=== PATIENT | female | born 1990 | race Caucasian/White ===

== ENCOUNTER 2018-01-06 22:08 | Emergency (ER) | payer OTHER, SELFPAY ==
[2018-01-06 22:09] VITALS: BP 125/65; PULSE 95; RESP 14; TEMP 37.6; O2SAT 100; BMI 38.0
--- NOTE | 2018-01-06 23:00 | RAD_ITS ---
STUDY: X-RAY - RIGHT SHOULDER REASON FOR EXAM: Female, 27 years old. Clinical by patient, right shoulder pain. TECHNIQUE: 4 view(s) of the shoulder. COMPARISON: None. FINDINGS: Normal glenohumeral articulation. Normal acromioclavicular joint. Normal acromion. Normal humeral head and visualized proximal humerus. The soft tissue structures are unremarkable. Normal visualized pulmonary apex. RAD/Shoulder min 2 Views IMPRESSION: Normal x-ray examination of the shoulder. No radiographic evidence of acute injury. Electronically Signed: Marlon Calvillo, at 23:17 EDT Tel , Service support ,
[2018-01-06] MEDS: Ibuprofen 600 MG Tablet PO (23:14)
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
--- NOTE | 2018-01-06 23:43 | DCINST.ED_ITS ---
ED Disposition - Plan for ED Patient: Disposition: Home or Assisted Living Chief Complaint: Upper Extremity Injury Instructions: When Your Child Has a Stinger, ED Sprain Shoulder Prescriptions: Cyclobenzaprine [Flexeril] 5 mg PO TID PRN #15 tab PRN Reason: Muscle Spasm Ibuprofen 600 mg PO 4X/DAY #20 tab Referrals: Sunny Antonio MD [Primary Care Provider] - 3-5 Days if not improving [facility] [GROUP OF PHYSICIANS] - As soon as possible Additional Instructions: Please use ibuprofen as needed for pain. If you are not driving or doing any dangerous activities, you may use the muscle relaxant to help with the muscle soreness in your neck and shoulder. If you have any worsening of your condition or any new concerning symptoms, please return immediately to the emergency department for another evaluation.
[2018-01-07] VITALS: BP 121/74; PULSE 80; RESP 17; O2SAT 99
== END 2018-01-07 00:01 | disposition home or self-care (01) ==
PROVIDERS: Emergency Provider Emergency Medicine; Family Provider Family Medicine; PCP Family Medicine
DX: S14.3XXA Injury of brachial plexus, initial encounter (principal); S46.911A Strain of unspecified muscle, fascia and tendon at shoulder and upper arm level, right arm, initial encounter; Y04.2XXA Assault by strike against or bumped into by another person, initial encounter; X58.XXXA Exposure to other specified factors, initial encounter; Y93.89 Activity, other specified; Y92.119 Unspecified place in children's home and orphanage as the place of occurrence of the external cause; Y99.0 Civilian activity done for income or pay; Z79.899 Other long term (current) drug therapy
CPT/HCPCS: 73030; 99283

== ENCOUNTER → 2018-06-13 08:16 | Outpatient (CLI) | payer OTHER, SELFPAY ==
[2018-06-13 10:30] LABS: Anion Gap 10 (5-15); BUN 12 mg/dL (7-18); BUN/Creat Ratio 14.3 RATIO (10-20); Calcium,Total 8.6 mg/dL (8.5-10.1); Chloride 108 mmol/L (98-107); Cholesterol 198 mg/dL (200); Creatinine, Serum 0.84 mg/dL (0.55-1.02); EST Glomerular Filtration Rate 87 mL/min (>60); Est Glom Filt Rate - Afr Amer 105 mL/min (>60); Glucose 83 mg/dL (74-106); High Density Lipoprotein 64 mg/dL; Potassium 4.2 mmol/L (3.5-5.1); Sodium Level 144 mmol/L (136-145); Thyroid Stim Hormone (TSH) 1.03 uIU/mL (0.358-3.74); Triglycerides 100 mg/dL; Very Low Density Lipoprotein 20 mg/dL (5-40)
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
== END ==
PROVIDERS: Family Provider Family Medicine; PCP Family Medicine; Visit Provider Family Medicine
DX: E66.9 Obesity, unspecified (principal)
CPT/HCPCS: 36415; 80048; 80061; 84443

== ENCOUNTER → 2023-06-29 | Outpatient (CLI) | payer BC, SELFPAY ==
[2023-06-29 16:01] LABS: Absolute Lymphocyte Count 2.04 X10^3/uL (0.83-4.51); Absolute Neutrophil Count 5.9 X10^3/uL (2.0-7.7); Basophil# 0.04 X10^3/uL; Basophil% 0.5 % (0-1); Eosinophils% 1.2 % (0-5); Hematocrit 41.4 % (37-47); Hemoglobin 13.7 g/dL (12.0-15.0); Lymphocyte # 2.04 X10^3/ul (0.83-4.51); Lymphocyte % 23.7 % (19-41); Mean Corp Hgb Conc 33.1 g/dL (32-36); Mean Corpuscular Hgb 31.1 pg (27.0-32.0); Mean Corpuscular Volume 93.9 fL (81-99); Mean Platelet Vol. 10.5 fl (6.2-12.0); Monocyte% 5.8 % (0-10); NRBC Flagged by Analyzer 0 % (0-5); Neutrophil # 5.89 X10^3/uL (2.7-7.7); Neutrophil % 68.6 % (47-70); Platelet Count 259 K/mm3 (150-450); RBC Distribution Width CV 12.7 % (11.6-14.6); RBC Distribution Width SD 43.9 fl (35.1-43.9); Red Blood Count 4.41 M/mm3 (4.2-5.4); White Blood Count 8.6 K/mm3 (4.4-11.0)
[2023-06-29 16:18] LABS: Hemoglobin A1c 4.4 % (3.8-5.6)
[2023-06-29 16:52] LABS: NATERA MAILED SPECIMEN
[2023-06-29 16:55] LABS: HIV - WCH Non-Reactive (Nonreactive); Hepatitis B Surface Antigen Non-Reactive (Nonreactive); Hepatitis C Antibody Non-Reactive (Nonreactive); Rubella IgG Reactive (Nonreactive); Syphilis Antibodies Non-reactive
[2023-07-01 22:10] LABS: Chlamydia By Nucleic Acid AMP Negative (Negative); Gonococcus By Nucleic Acid AMP Negative (Negative)
[2023-07-04 12:08] LABS: HPV APTIMA, High Risk Negative (Negative)
== END | disposition home or self-care (01) ==
PROVIDERS: PCP Family Medicine; Referring Provider Registered Nurse; Visit Provider Registered Nurse
DX: Z34.81 Encounter for supervision of other normal pregnancy, first trimester (principal); Z3A.00 Weeks of gestation of pregnancy not specified
CPT/HCPCS: 36415; 83036; 85025; 86703; 86762; 86780; 86803; 86850; 86900; 86901; 87086; 87088; 87340; 87491; 87591; 87624; 88175; G0145

== ENCOUNTER → 2023-10-25 | Outpatient (CLI) | payer BC, SELFPAY ==
[2023-10-25 09:15] LABS: Absolute Lymphocyte Count 1.48 X10^3/uL (0.83-4.51); Absolute Neutrophil Count 3.9 X10^3/uL (2.0-7.7); Basophil# 0.02 X10^3/uL; Basophil% 0.3 % (0-1); Eosinophil# 0.28 X10^3/uL; Eosinophils% 4.6 % (0-5); Hematocrit 38.7 % (37-47); Hemoglobin 12.9 g/dL (12.0-15.0); Lymphocyte # 1.48 X10^3/ul (0.83-4.51); Lymphocyte % 24.5 % (19-41); Mean Corp Hgb Conc 33.3 g/dL (32-36); Mean Platelet Vol. 10.7 fl (6.2-12.0); Monocyte# 0.39 X10^3/uL; Monocyte% 6.4 % (0-10); NRBC Flagged by Analyzer 0 % (0-5); Neutrophil # 3.86 X10^3/uL (2.7-7.7); Neutrophil % 63.9 % (47-70); Platelet Count 166 K/mm3 (150-450); RBC Distribution Width SD 44.4 fl (35.1-43.9); Red Blood Count 4.16 M/mm3 (4.2-5.4); White Blood Count 6.1 K/mm3 (4.4-11.0)
[2023-10-25 09:25] LABS: Glucose Challenge Gest 1H 50g 112 mg/dL (70-140)
[2023-10-25 09:56] LABS: HIV - WCH Non-Reactive (Nonreactive); Syphilis Antibodies Non-reactive
== END | disposition home or self-care (01) ==
LOC: PAVLAB 08:40
PROVIDERS: PCP Family Medicine; Referring Provider Obstetrics & Gynecology; Visit Provider Obstetrics & Gynecology
DX: O09.90 Supervision of high risk pregnancy, unspecified, unspecified trimester (principal); Z13.1 Encounter for screening for diabetes mellitus; Z3A.00 Weeks of gestation of pregnancy not specified
CPT/HCPCS: 36415; 82950; 85025; 86703; 86780

== ENCOUNTER → 2023-12-22 | Outpatient (CLI) | payer BC, SELFPAY | END | disposition home or self-care (01) | LOC: LABSPEC 11:04 | PROVIDERS: PCP Family Medicine; Referring Provider Obstetrics & Gynecology; Visit Provider Obstetrics & Gynecology | DX: O09.93 Supervision of high risk pregnancy, unspecified, third trimester (principal); Z3A.00 Weeks of gestation of pregnancy not specified | CPT/HCPCS: 87081 ==

== ENCOUNTER → 2024-01-06 | Outpatient (CLI) | payer BC, SELFPAY ==
--- NOTE | 2024-01-06 09:07 | US_ITS ---
STUDY: SECOND AND THIRD TRIMESTER OBSTETRICAL ULTRASOUND - LIMITED REASON FOR EXAM: Female, 33 years old Obesity -- growth LMP: 04/15/2023 PRIOR ULTRASOUND: 06/29/2023 TECHNIQUE: Transabdominal TECHNICAL QUALITY: Adequate. FINDINGS: There is a single intrauterine fetus. The fetus is in a cephalic presentation. There is demonstrated cardiac activity with a heart rate of 143 bpm. There is a normal amniotic fluid volume. The largest amniotic fluid pocket measures 4.7 cm. The amniotic fluid index (RAKESH) is 15.7 cm. The placenta is anterior in location and is not low lying. There are Grade 2 placental changes. The cervix measures 4.7 cm cm in length. BIOMETRY: BPD: 9.0 cm: 3 6 weeks, 3 days HC: 33.5 cm: 38 weeks, 2 days AC: 31.2 cm: 35 weeks, 1 days FL: 7.2 cm: 37 weeks, 0 days Age by LMP: 38 weeks, 0 days. NARCISA by LMP: 01/20/2024. age by prior US: weeks, days. NARCISA by prior US: . age by current US: 37 weeks, 2 days. NARCISA by current US: 01/25/2024. Estimated weight: 2827 grams, +/- 424 grams, 17 percentile. Gender: US/OB Limited With Biometrics IMPRESSION: Living intrauterine of 37 weeks 2 days as described above. Electronically Signed: Marlon Ritter MD at 12:24 EDT ,
== END | disposition home or self-care (01) ==
PROVIDERS: PCP Family Medicine; Referring Provider Obstetrics & Gynecology; Visit Provider Obstetrics & Gynecology
DX: O99.210 Obesity complicating pregnancy, unspecified trimester (principal); Z3A.00 Weeks of gestation of pregnancy not specified
CPT/HCPCS: 76816

== ENCOUNTER 2024-01-24 22:16 | Inpatient (IN) | payer BC, SELFPAY ==
[2024-01-24 22:02] VITALS: BP 127/81; PULSE 73; RESP 14; TEMP 36.2
[2024-01-24 22:03] VITALS: PULSE 74; O2SAT 99
[2024-01-24 22:04] VITALS: BMI 41.6
[2024-01-24 22:39] LABS: ROM Internal Control Test YES-OK TO RESULT pt. (Internal QC); ROM Patient Test POSITIVE (Negative); Record Kit Lot#, ROM+ K1866
[2024-01-24] MEDS: Lactated Ringers 1,000 ML 50 ML IV (22:48)
[2024-01-24 23:04] LABS: Absolute Lymphocyte Count 1.91 X10^3/uL (0.83-4.51); Absolute Neutrophil Count 6.4 X10^3/uL (2.0-7.7); Basophil# 0.03 X10^3/uL; Basophil% 0.3 % (0-1); Eosinophil# 0.08 X10^3/uL; Eosinophils% 0.9 % (0-5); Hematocrit 37.6 % (37-47); Hemoglobin 12.9 g/dL (12.0-15.0); Lymphocyte # 1.91 X10^3/ul (0.83-4.51); Lymphocyte % 20.8 % (19-41); Mean Corp Hgb Conc 34.3 g/dL (32-36); Mean Corpuscular Hgb 30.5 pg (27.0-32.0); Mean Corpuscular Volume 88.9 fL (81-99); Mean Platelet Vol. 12.1 fl (6.2-12.0); Monocyte% 7.6 % (0-10); NRBC Flagged by Analyzer 0 % (0-5); Neutrophil # 6.42 X10^3/uL (2.7-7.7); Neutrophil % 70.1 % (47-70); Platelet Count 166 K/mm3 (150-450); RBC Distribution Width CV 13.3 % (11.6-14.6); RBC Distribution Width SD 43.2 fl (35.1-43.9); Red Blood Count 4.23 M/mm3 (4.2-5.4); White Blood Count 9.2 K/mm3 (4.4-11.0)
[2024-01-24 23:13] VITALS: RESP 16; TEMP 36.3
[2024-01-24 23:15] VITALS: PULSE 68; O2SAT 98
[2024-01-24 23:20] VITALS: BP 115/68; PULSE 67; RESP 16
[2024-01-24 23:41] LABS: Syphilis Antibodies Non-reactive
[2024-01-25] VITALS (79 sets, daily range): BP systolic 95–149; BP diastolic 51–95; PULSE 50–89; RESP 16–20; TEMP 36.1–37.1; O2SAT 86–100
--- NOTE | 2024-01-25 01:32 | HP.PCM.OB_ITS ---
HPI - General General Date of Admission: 01/24/24 HPI Narrative JOURDAN GUZMAN, is a 33 F who presents with SROM clear fluid since this evening. she is a @ 40w5d. h/o LEEP but otherwise uncomplicated Maternal Data Information NARCISA Calculator Estimated Delivery Date Method Current WG Current Estimate 01/20/24 LMP (Certain) 40w 5d PFSH PFSH Medical History (Updated 01/25/24 @ 01:[address] Kenya Regan MD) Abnormal Pap smear of cervix Home Medications ?Medication ?Instructions ?Recorded ?Last Taken ?Type PNV 153-FA 400 mcg-om3 35 mg-dha 1 tab PO DAILY 06/24/23 01/23/24 History 25 mg-epa 5 mg-fish oil chew tablet Allergy/AdvReac Type Severity Reaction Status Date / Time Environmental Allergies: Allergy Severe Hives Verified 01/24/24 22:04 Uncoded animal dander Allergy Mild Other Verified 01/24/24 22:04 Family History Mother Rheumatoid arthritis Grandmother Diabetes Maternal Surgical History (Updated 01/24/24 @ 22:51 by Ramona Izquierdo) History of gynecologic surgery History of bunionectomy of left great toe Tenino teeth removed Social History adopted: No household members: spouse current occupational status: employed 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 current occupational exposures/hazards: No pets and animals: Yes pets and animals: dog(s) history of recent travel: Yes ([facility] in March) out of state: Yes out of country: Yes sexually active: Yes Smoking Status: Former smoker alcohol intake: current alcohol intake frequency: holidays/special occasions only details: not while substance use type: does not use well-balanced diet: daily or most days caffeine: Yes Type: coffee Number of servings: 1 eating out: rarely or never during the past year weight has: decreased > 10 lbs what type of physical activity do you participate in: walking and weight training frequency: 3-4 times per week duration: 30-45 minutes/day yana/episcopalian: None seatbelt use: always do you feel safe at home: Yes 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 History 1 Elective abortions Hx Para 0 Spontaneous abortions Hx # Term Pregnancies Ectopic pregnancies Hx # Pregnancies Multiple births # of living children 0 Visit Details Expected Delivery Route/Plan Labor Preferences- CB/BF classes: can't attend labor support person: Julio labor intervention preferences: pain management options preferred: epidural cut cord/dad catch: yes : pump only PP control planned: discussed discussed possible routes of delivery and associated risks: [] special requests: [] Plans Covid status: [] Flu vaccine: [] Tdap vaccine: given Rhogam: na LARC form signed: yes Problem list reviewed and updated with the most current plan of care details and appropriate orders placed. Relevant counseling for the gestational age provided. Continue routine care and follow up unless otherwise noted in visit notes/problem list details OB Flowsheet Initial Weight: Not Recorded Date -?-?-?-?-?-?-?-?-?-?-?-?- EGA Weight BP Urine Prot -?-?-?-?-?-?-?-?-?-?-?-?- Glucose FHR FuHt Pres Dilation -?-?-?-?-?-?-?-?-?-?-?-?- Effaced St Visit Note 06/29/23 -?-?-?-?-?-?-?-?-?-?-?-?- 10w 5d 208 lb 123/76 -?-?-?-?-?-?-?-?-?-?-?-?- 153 -?-?-?-?-?-?-?-?-?-?-?-?- LC- CRL con with LMP. desires nipt. 08/03/23 -?-?-?-?-?-?-?-?-?-?-?-?- 15w 5d 216 lb 4 oz 114/74 Nega tive -?-?-?-?-?-?-?-?-?-?-?-?- Negative 147 -?-?-?-?-?-?-?-?-?-?-?-?- JV- no lof, vagi nal bleeding, or cramping. nervous today because her sister had an ectopic surgery yesterday. pt reassured. 08/31/23 -?-?-?-?-?-?-?-?-?-?-?-?- 19w 5d 227 lb 4 oz 122/57 Nega tive -?-?-?-?-?-?-?-?-?-?-?-?- Negative 145 -?-?-?-?-?-?-?-?-?-?-?-?- JV- no lof, vagi nal bleeding, or cramping has anatomy scan scheduled for next week in [place] 09/28/23 -?-?-?-?-?-?-?-?-?-?-?-?- 23w 5d 233 lb 115/79 -?-?-?-?-?-?-?-?-?-?-?-?- 149 -?-?-?-?-?--?-?-?-?-?-?-?- JV- no lof, vagi nal bleeding, not feeling movement yet. has anterior placenta. seeing chiropractor for sciatic nerve pain. yoan given. rh pos. 10/25/23 -?-?-?-?-?-?-?-?-?-?-?-?- 27w 4d 236 lb 118/77 Negative -?-?-?-?-?-?-?-?-?-?-?-?- Negative 147 28 -?-?-?-?-?-?-?-?-?-?-?-?- kw- no vb/lof/cori loo fm. 28 week labs pending today. 11/07/23 -?-?-?-?-?-?-?-?-?-?-?-?- 29w 3d 240 lb 2 oz 120/72 Nega tive -?-?-?-?-?-?-?-?-?-?-?-?- Negative 144 30 -?-?-?-?-?-?-?-?-?-?-?-?- MH-NO VB, LOF. Paige ohazel FM. Nl 28 wk labs. [place]. Wants tdap next visit 11/24/23 -?-?-?-?-?-?-?-?-?-?-?-?- 31w 6d 242 lb 119/80 Negative -?-?-?-?-?-?-?-?-?-?-?-?- Negative 145 32 -?-?-?-?-?-?-?-?-?-?-?-?- SM- no vb lof go od fm no regular ctx tdap today 12/08/23 -?-?-?-?-?-?-?-?-?-?-?-?- 33w 6d 241 lb 4 oz 112/78 Nega tive -?-?-?-?-?-?-?-?-?-?-?-?- Negative 145 34 -?-?-?-?-?-?-?-?-?-?-?-?- KW- no vb/lof/ct x. good fm. 12/22/23 -?-?-?-?-?-?-?-?-?-?-?-?- 35w 6d 247 lb 131/80 Negative -?-?-?-?-?-?-?-?-?-?-?-?- Negative 137 35 Cephalic 0 -?-?-?-?-?-?-?-?-?-?-?-?- JV- cx closed, g bs done. rpt bp was 114/81. No complaints. 12/28/23 -?-?-?-?-?-?-?-?-?-?-?-?- 36w 5d 251 lb 4 oz 116/72 Nega tive -?-?-?-?-?-?-?-?-?-?-?-?- Negative 145 37 Cephalic 0 .5 -?-?-?-?-?-?-?-?-?-?-?-?- MH-No VB, lof or reg CTX. Good FM. Neg GBS 01/04/24 -?--?-?-?-?-?-?-?-?-?-?-?- 37w 5d 249 lb 121/80 Negative -?-?-?-?-?-?-?-?-?-?-?-?- Negative 125 37 0.5 -?-?-?-?-?-?-?-?-?-?-?-?- SM- no vb lof go od fm n oregualr ctx SM- no vb lof good fm n oreg ualr ctx FH stable/obesity- growth US ordered 01/09/24 -?-?-?-?-?-?-?-?-?-?-?-?- 38w 3d 250 lb 115/76 Negative -?-?-?-?-?-?-?-?-?-?-?-?- Negative 135 36 Cephalic 0 .5 -?-?-?-?-?-?-?-?-?-?-?-?- JV- growth was 1 7th% and RAKESH was 15. pt reassured. no lof, vaginal bleeding, or dec fm. 01/20/24 -?-?-?-?-?-?-?-?-?-?-?-?- 40w 0d 254 lb 134/83 Negative -?-?-?-?-?-?-?-?-?-?-?-?- Negative 150 37 Cephalic 1 -?-?-?-?-?-?-?-?--?-?-?-?- 40 -3 JV- no lof , va ginal bleeding, or dec fm. setting up 41 week IOL next week. NST FHR Rate Baby A Baseline: 130 Variability:: Moderate Accelerations:: 15 x 15 Decelerations:: None NST Reactive:: Yes FHR Category:: Category I Uterine Activity:: irregular ROS Constitutional Constitutional: Reports systems reviewed and no addt'l complaints, except as documented Eyes Eyes: Denies change in vision ENT HEENT: Reports systems reviewed and no addt'l complaints, except as documented; Denies headache(s) Cardiovascular Cardiovascular: Reports systems reviewed and no addt'l complaints, except as documented; Denies chest pain or dyspnea Respiratory/Chest Respiratory/Chest: Reports systems reviewed and no addt'l complaints, except as documented Gastrointestinal Gastrointestinal: Reports systems reviewed and no addt'l complaints, except as documented; Denies abdominal pain Genitourinary Genitourinary: Reports systems reviewed and no addt'l complaints, except as documented, contractions Details: present (irregular) and movement Details: present; Denies dysuria or genital lesions Musculoskeletal Musculoskeletal: Reports systems reviewed and no addt'l complaints, except as documented Neurologic Neurologic: Reports systems reviewed and no addt'l complaints, except as documented Endocrine Endocrinology: Reports systems reviewed and no addt'l complaints, except as documented Vital Signs Vital Signs Vital Signs: 01/24/24 22:02 01/24/24 22:02 01/24/24 22:02 Temperature Temperature Source Temporal Pulse Rate 73 Respiratory Rate Blood Pressure 127/81 H BP Systolic 127 BP Diastolic 81 Pulse Ox 01/24/24 22:02 01/24/24 22:02 01/24/24 22:03 Temperature 97.1 F L Temperature Source Pulse Rate 74 Respiratory Rate 14 Blood Pressure BP Systolic BP Diastolic Pulse Ox 01/24/24 22:03 01/24/24 23:13 01/24/24 23:13 Temperature Temperature Source Temporal Pulse Rate Respiratory Rate 16 Blood Pressure BP Systolic BP Diastolic Pulse Ox 99 01/24/24 23:13 01/24/24 23:15 01/24/24 23:15 Temperature 97.3 F L Temperature Source Pulse Rate 68 Respiratory Rate Blood Pressure BP Systolic BP Diastolic Pulse Ox 98 01/24/24 23:20 01/24/24 23:20 01/24/24 23:20 Temperature Temperature Source Pulse Rate 67 Respiratory Rate 16 Blood Pressure 115/68 BP Systolic 115 BP Diastolic 68 Pulse Ox 01/25/24 00:40 01/25/24 00:40 01/25/24 00:40 Temperature Temperature Source Temporal Pulse Rate 59 L Respiratory Rate Blood Pressure 126/73 H BP Systolic 126 BP Diastolic 73 Pulse Ox 01/25/24 00:40 01/25/24 00:40 Temperature 97.0 F L Temperature Source Pulse Rate Respiratory Rate 16 Blood Pressure BP Systolic BP Diastolic Pulse Ox Weight Weight: 257 lb 15.053 oz Body Mass Index (BMI) 41.6 Physical Exam Const alert, oriented x3, no apparent distress and healthy appearing HEENT normocephalic and moist oral mucous membranes Head and Scalp: atraumatic Neck full ROM, no lymphadenopathy, supple and thyroid normal General: trachea midline Lymph Lymphatic: no lymphadenopathy noted Chest inspection of chest normal Resp normal respiratory effort Cardio regular rate GI normal to inspection, nondistended, normoactive bowel sounds, soft to palpation and non-tender Inspection: gravid external exam normal Manual OB Exam: estimated gestational size appropriate, presentation cephalic, dilated 2, effaced and station Extremity normal to inspection General Extremity: Negative for edema Skin no rashes or lesions noted Neuro no focal motor deficits and deep tendon reflexes 2+ bilaterally Motor Exam: strength 5/5 throughout and clonus absent Psych mental status grossly normal Labs Labs Labs: Blood Type A POSITIVE Antibody Screen NEGATIVE Hct 37.6 % (37-47) Hgb 12.9 g/dL (12.0-15.0) Obstetrics Ultrasound Syphilis Total Ab Non-reactive Rubella IgG Antibody Reactive (Nonreactive) Hep Bs Antigen Non-Reactive (Nonreactive) Hepatitis C Antibody Non-Reactive (Nonreactive) Chlamydia DNA (NAN) Negative (Negative) N.gonorrhoeae DNA (NAN) Negative (Negative) HIV 1&2 Antibody Non-Reactive (Nonreactive) Glucose 1 Hr 50 gm 112 mg/dL (70-140) Miscellaneous Test Assessment & Plan (1) Obesity: QUALIFIERS: Obesity type: unspecified obesity type Obesity classification: unspecified obesity classification Serious obesity comorbidity presence: without serious comorbidity Qualified Code(s): E66.9 - Obesity, unspecified COMMENT: normal hgb a1c healthy weight gain in (2) Hx LEEP (loop electrosurgical excision procedure), cervix, : QUALIFIERS: Trimester: third trimester Qualified Code(s): O34.43 - Maternal care for other abnormalities of cervix, third trimester; Z98.890 - Other specified postprocedural states COMMENT: 2011- small amount of cervical funneling on us at anatomy. Repeat 09/12/23 36mm. Per MFM no further follow up needed. (3) Supervision of high-risk : QUALIFIERS: Trimester: third trimester Qualified Code(s): O09.93 - Supervision of high risk , unspecified, third trimester COMMENT: PRR, , NARCISA 01/20/24, girl Maislyn Julio (4) : QUALIFIERS: Weeks of gestation: 40 weeks Qualified Code(s): Z3A.40 - 40 weeks gestation of COMMENT: Neg GBS. declined ntd genetic & carrier testing. nl anatomy (5) SROM (spontaneous rupture of membranes): PLAN: Plan Patient presents IAL, plan expectant management for , pitocin if needed. Pain management: plans epidural. GBS neg. Management of any complications: none I have reviewed the [facility] and made any clinically relevant updates.
[2024-01-25] MEDS: Lactated Ringers 1,000 ML 999 ML IV (02:27)
[2024-01-25] MEDS: fentaNYL-bupivacaine (epidural) 100 ML BAG EPIDURAL ×2 (03:42→08:53)
[2024-01-25] MEDS: LACTATED RINGERS 500 ML 999 ML IV (04:07)
[2024-01-25] MEDS: Lactated Ringers 1,000 ML 200 ML IV (04:52)
[2024-01-25] MEDS: 0.9% Normal Saline 100 ML IV.SOLN. 300 ML INTRA-UTER (06:55)
--- NOTE | 2024-01-25 08:16 | PCM.PN.BLA ---
Progress Note Patient is in side lying release when I entered the room. Nurse reports recent exam shows that she is 5 cm dialted current tracing: FHT: Moderate variability, intermittent late and variable declerations. at 7:10 there was a prolonged deceleration [place]: q 4 min Contractions cs: 4/70/-2, vtx, light mec fluid. amnioinfusion is running. A/P: discussed with patient that cervix is still 4 cm and her contractions are likely not adequate to start pitocin to help her deliver and the baby's heart rate makes starting pitocin currently contraindicated. Plan is to continue amnioninfusion and position changes. If we get a window that we can start pit we will. we discussed possible need for section and patient understands and is willing to do what is needed for baby's safety
[2024-01-25] MEDS: Oxytocin 15 Units/NS 250ml 15 UNITS/250 ML IV.SOLN 2 UNITS IV (08:54)
[2024-01-25] MEDS: Cefazolin 3 GM in 0.9% Normal Saline (100mL Bag) 100 ML IV (13:11)
--- NOTE | 2024-01-25 13:52 | EX.PCM.OBRPT ---
Assessment & Plan (1) intolerance to labor, delivered, current hospitalization: (2) SROM (spontaneous rupture of membranes): (3) Obesity: QUALIFIERS: Obesity type: unspecified obesity type Obesity classification: unspecified obesity classification Serious obesity comorbidity presence: without serious comorbidity Qualified Code(s): E66.9 - Obesity, unspecified COMMENT: normal hgb a1c healthy weight gain in (4) Hx LEEP (loop electrosurgical excision procedure), cervix, : QUALIFIERS: Trimester: third trimester Qualified Code(s): O34.43 - Maternal care for other abnormalities of cervix, third trimester; Z98.890 - Other specified postprocedural states COMMENT: 2011- small amount of cervical funneling on us at anatomy. Repeat 09/12/23 36mm. Per MFM no further follow up needed. (5) Supervision of high-risk : QUALIFIERS: Trimester: third trimester Qualified Code(s): O09.93 - Supervision of high risk , unspecified, third trimester COMMENT: PRR, , NARCISA 01/20/24, girl Maislyn Julio (6) : QUALIFIERS: Weeks of gestation: 40 weeks Qualified Code(s): Z3A.40 - 40 weeks gestation of COMMENT: Neg GBS. declined ntd genetic & carrier testing. nl anatomy Maternal Data Information NARCISA Calculator Estimated Delivery Date Method Current WG Current Estimate 01/20/24 LMP (Certain) 40w 5d Details Operative Information Date of Procedure: 01/25/24 Pre-Operative Diagnosis: 33 y/o G1 @ 40 weeks 5 days, intolerance to labor Post-Operative Diagnosis: 33 y/o G1 @ 40 weeks 5 days, intolerance to labor Classification: ISABELA Procedure Type: low transverse pile header #1: Payton Zamorano Type of Anesthesia: Epidural Antibiotic Given: Ancef 3 grams IV x1 and Zithromax 500 mg/5 mL X1 Drain: Cuevas to straight drain Estimated Blood Loss: [id number] Procedure Start Time: 13:22 Time of Delivery: 13:28 Findings Description of Procedure: Procedure: The patient was brought to the operating room and spinal anesthesia was found to be adequate. She was prepped and draped in the normal sterile fashion and was placed in a dorsal supine position with a leftward tilt. Pfannenstiel skin incision was made with a scalpel and carried through to the underlying layers. The fascia was nicked in the midline and extended laterally using Kaur scissors. The anterior aspect of the fascia was grasped with Issa clamps and the underlying rectus muscles dissected off using the Metzenbaum scissors. The inferior aspect the fascia was also grasped with Issa clamps and the underlying rectus muscle dissected off with the Metzenbaum scissors. The rectus muscles were in the midline. Peritoneum was entered sharply. The uterus was identified and a bladder blade was inserted into the abdomen. Bladder flap was created off the uterus using Metzenbaum scissors. A transverse incision was made with a scalpel and extended laterally manually. The infant's head was grasped with the help of my assistant boys track coach and fundal pressure the was delivered through the uterine incision without difficulty. The pelvic was noted to be extremely narrow. The mouth and nares were bulb suctioned. After a 30 second delay the cord was clamped and cut. The infant was handed off to the awaiting finishing and shipping supervisor for routine assessment. Placenta was delivered manually without difficulty. The uterus was exteriorized and cleared of all clots and debris. Incision was closed with an 0 Vicryl suture in a running locked fashion. Second layer of 1-0 monocryl suture was used in imbricating manner to create excellent closure and hemostasis. The uterus was returned to the abdomen. The gutters were cleared of all clots and debris. The peritoneum was closed in a pursestring pattern using a 3-0 Vicryl suture. This muscle was reapproximated with a 3-0 Vicryl. The fascia was closed with an 0-PDS suture. Subcutaneous tissue layer was closed using a 3-0 vicryl suture The skin was closed with a 4-0 Monocryl subcuticular stitch. The skin was also sealed with surgical glue. The patient tolerated the procedure well sponge lap and needle counts were correct at each tissue closure plane and the patient is now being brought to the recovery room in stable condition baby girl Maislyn Presentation: Positive for Vertex Amniotic Fluid Description: Clear Placental Delivery Description: Manual Removal Placenta Disposition: [facility] Cord Vessel Description: 3 Vessels Cord Entanglement: None Infant A Gender: Female (1 minute): 8 (5 minute): 9 Delayed Cord Clamping: Yes Complications Risks of Surgery Discussed w/Patient: Anesthesia Risks, Infection, Need for Future C-Sections and Injury to surrounding structure(s) including bowel and bladder Multi Select Codes Urinary/Genital Urinary/Genital CPT Codes: 65417 [facility]
--- NOTE | 2024-01-25 13:55 | DCINST_ITS ---
Discharge Instructions Diet Discharge Diet: No restrictions Activity Discharge Activity: May Not Drive (for 2 weeks or while taking narcotic pain medications.), May Shower and May Take a Tub Bath (in 7 days.) May resume sexual activity in: 4-6 weeks Weight Bearing Status: Full weight bearing Lifting Restrictions: 20 pounds Dressing / Incision Call your doctor if your incision/area has: Continuous Slow Oozing, Sudden Increased Bleeding, Increased Pain/ Swelling, Increased Redness and Foul Smelling Discharge Call your doctor if you observe: Fever of 101 or Higher and Using more than 1 pad per hour Suture Line Care: Avoid Pulling/Pushing and Avoid Pinching/Bending Cleanse incision/area with: Soap & Water and Keep Dressing Clean & Dry Follow Up Care Please Follow Up With: Brigid James DO When: Call [phone] to make an appointment for an incision check in 1-2 weeks. Test Results: Test results from this visit will be discussed in further detail at your follow- up appointment, if applicable. Discharge Plan Admission Admit Date/Time: 01/24/24 22:16 Primary Reason for Your Visit: section Attending Provider: Brigid James Primary Care Provider: Gerry Antonio Discharge Orders/Prescriptions Prescriptions: New ibuprofen 800 mg tablet 800 mg PO Q8H PRN (Reason: pain) Qty: 30 0RF oxycodone-acetaminophen [Percocet] 5-325 mg tablet 1 tab PO Q4H PRN (Reason: pain) 7 Days Qty: 20 0RF Rx Instructions: 1-2 tabs q 4 hrs as needed for pain No Action PNV no.[id number] 400 mcg-35 mg- 25 mg-5 mg tablet,chewable 1 tab PO DAILY Referrals / Follow Up: Gerry Antonio MD [Primary Care Provider] -
[2024-01-25] MEDS: Azithromycin 500 MG in Dextrose 5%-Water (250mL Bag) 250 ML 250 MG IV (14:05)
[2024-01-25] MEDS: Oxytocin 15 Units/NS 250ml 15 UNITS/250 ML IV.SOLN 83 UNITS IV (14:10)
[2024-01-25] MEDS: Acetaminophen 500 MG Tablet 1000 MG PO ×2 (14:53→21:46)
[2024-01-25] MEDS: Ketorolac 30 MG/ML Syringe IV ×2 (14:53→21:46)
[2024-01-25] MEDS: 0.9% Saline Lock 10 ML Syringe IV (21:46)
[2024-01-26] VITALS (11 sets, daily range): BP systolic 91–110; BP diastolic 51–73; PULSE 57–84; RESP 16–20; TEMP 36.4–36.6; O2SAT 98–100
[2024-01-26] MEDS: Enoxaparin 40 MG/0.4 ML Syringe SC ×2 (01:38→15:32)
[2024-01-26] MEDS: Acetaminophen 500 MG Tablet 1000 MG PO ×3 (03:52→15:31)
[2024-01-26] MEDS: 0.9% Saline Lock 10 ML Syringe IV ×2 (03:52→09:44)
[2024-01-26] MEDS: Ketorolac 30 MG/ML Syringe IV ×2 (03:53→09:40)
[2024-01-26 05:42] LABS: Hematocrit 34.4 % (37-47); Hemoglobin 11.4 g/dL (12.0-15.0); Mean Corp Hgb Conc 33.1 g/dL (32-36); Mean Corpuscular Hgb 30.3 pg (27.0-32.0); Mean Corpuscular Volume 91.5 fL (81-99); Mean Platelet Vol. 11.9 fl (6.2-12.0); Platelet Count 163 K/mm3 (150-450); RBC Distribution Width CV 13.4 % (11.6-14.6); RBC Distribution Width SD 45.2 fl (35.1-43.9); Red Blood Count 3.76 M/mm3 (4.2-5.4); White Blood Count 16.3 K/mm3 (4.4-11.0)
--- NOTE | 2024-01-26 08:33 | PCM.PN.OB ---
Subjective Subjective Patient doing well without complaints. Tolerating PO. Ambulating and voiding without difficulty. feeding well. Denies chest pain, shortness of breath, calf pain/swelling, fevers, chills, lightheadedness. Objective Data Objective Data Vital Signs: Vital Signs Temp Pulse Resp BP Pulse Ox O2 Del Method 97.9 F 61 18 91/57 L 100 Room Air 01/26/24 04:30 01/26/24 07:38 01/26/24 07:38 01/26/24 04:30 01/26/24 07:38 01/26/24 07:38 Oxygen Delivery Method Room Air Weight: 257 lb 15.053 oz Body Mass Index (BMI) 41.6 Intake & Output: Intake and Output for Last 24 Hours 01/24/24 01/25/24 01/26/24 23:59 23:59 23:59 Intake Total 3595.10 / 3595.10 Output Total 2950 / 2950 Balance 645.10 / 645.10 Lab / Micro Data 01/26/24 05:30 Labs: Laboratory Results - last 24 hr 01/26/24 05:30: WBC 16.3 H, RBC 3.76 L, Hgb 11.4 L, Hct 34.4 L, MCV 91.5, MCH 30.3, MCHC 33.1, RDW Std Deviation 45.2 H, RDW Coeff of Jessie 13.4, Plt Count 163, MPV 11.9 ROS Constitutional Constitutional: Reports systems reviewed and no addt'l complaints, except as documented Cardiovascular Cardiovascular: Reports systems reviewed and no addt'l complaints, except as documented Respiratory/Chest Respiratory/Chest: Reports systems reviewed and no addt'l complaints, except as documented Gastrointestinal Gastrointestinal: Reports systems reviewed and no addt'l complaints, except as documented Physical Exam Const alert, oriented x3 and no apparent distress HEENT Head and Scalp: atraumatic Resp normal respiratory effort GI soft to palpation and non-tender Inspection: incision intact, healing well and drainage (none) Bimanual Exam - Vag & Uterus: uterus non-tender Uterus Palpation: uterus fundus firm (below Umbilicus) Assessment & Plan (1) Status post section: (2) intolerance to labor, delivered, current hospitalization: PLAN: Plan s/p LTCS PPD # 1 1. routine post care 2. breast feeding- support given 3. rh positive 4. rubella immune
[2024-01-26] MEDS: Senna/Docusate Sodium 1 Tablet PO (09:41)
[2024-01-26] MEDS: Ibuprofen 600 MG Tablet PO (15:32)
== END 2024-01-26 18:45 | disposition home or self-care (01) | DRG 788 ==
LOC: WP 01-25 08:59
PROVIDERS: Admitting Provider Obstetrics & Gynecology; PCP Family Medicine; Referring Provider Obstetrics & Gynecology; Visit Provider Obstetrics & Gynecology
DX: O42.02 Full-term premature rupture of membranes, onset of labor within 24 hours of rupture (principal); O99.214 Obesity complicating childbirth; O76 Abnormality in fetal heart rate and rhythm complicating labor and delivery; O77.0 Labor and delivery complicated by meconium in amniotic fluid; Z37.0 Single live birth; Z3A.40 40 weeks gestation of pregnancy
CPT/HCPCS: 59025; 59050; 84112; 85025; 85027; 86780; 86850; 86900; 86901; 99221; J7120; A4216; G0378; J2405

== ENCOUNTER → 2024-08-20 | Outpatient (CLI) | payer OTHER, SELFPAY ==
--- NOTE | 2024-08-20 09:06 | RAD_ITS ---
EXAM: XR Abdomen, 2 Views CLINICAL INDICATION: TECHNIQUE: Frontal view of the abdomen/pelvis with upright view of the abdomen. COMPARISON: No relevant prior studies available. FINDINGS: INTRAPERITONEAL SPACE: No free air. GASTROINTESTINAL TRACT: Fecal retention in the colon consistent with constipation. No dilation. BONES/JOINTS: Unremarkable. No acute fracture. RAD/Abd Inc Decub and/or Erect IMPRESSION: Fecal retention in the colon consistent with constipation. Reading Location: [place]
[2024-08-20 12:50] LABS: Absolute Lymphocyte Count 1.87 X10^3/uL (0.83-4.51); Absolute Neutrophil Count 5.4 X10^3/uL (2.0-7.7); Basophil# 0.03 X10^3/uL; Basophil% 0.4 % (0-1); Eosinophil# 0.06 X10^3/uL; Eosinophils% 0.7 % (0-5); Hematocrit 41.8 % (37-47); Hemoglobin 13.7 g/dL (12.0-15.0); Lymphocyte # 1.87 X10^3/ul (0.83-4.51); Lymphocyte % 23.3 % (19-41); Mean Corp Hgb Conc 32.8 g/dL (32-36); Mean Corpuscular Hgb 29.9 pg (27.0-32.0); Mean Corpuscular Volume 91.3 fL (81-99); Mean Platelet Vol. 11.3 fl (6.2-12.0); Monocyte# 0.65 X10^3/uL; Monocyte% 8.1 % (0-10); NRBC Flagged by Analyzer 0 % (0-5); Neutrophil # 5.39 X10^3/uL (2.7-7.7); Neutrophil % 67.4 % (47-70); Platelet Count 217 K/mm3 (150-450); RBC Distribution Width CV 13.5 % (11.6-14.6); RBC Distribution Width SD 45.5 fl (35.1-43.9); Red Blood Count 4.58 M/mm3 (4.2-5.4)
[2024-08-20 12:59] LABS: Erythrocyte Sedimentation Rate 3 mm/hr (0-30)
[2024-08-20 20:10] LABS: AST(SGOT) 13 U/L (15-37); Alanine Aminotransfer ALT/SGPT 18 U/L (13-56); Albumin, Serum 3.5 g/dL (3.2-5.0); Alkaline Phosphatase 56 U/L (45-117); Amylase 39 U/L (25-115); Anion Gap 5 (5-15); BUN 8 mg/dL (7-18); BUN/Creat Ratio 11.2 RATIO (10-20); Calcium,Total 8.9 mg/dL (8.5-10.1); Chloride 105 mmol/L (98-107); Creatinine, Serum 0.72 mg/dL (0.55-1.02); EST Glomerular Filtration Rate 100 mL/min (>60); Est Glom Filt Rate - Afr Amer 121 mL/min (>60); Globulin 3.5 g/dL (2.2-4.2); Glucose 87 mg/dL (74-106); Lipase 32 U/L (73-393); Potassium 3.6 mmol/L (3.5-5.1); Sodium Level 138 mmol/L (136-145)
== END | disposition home or self-care (01) ==
PROVIDERS: PCP Family Medicine; Referring Provider Family Medicine; Visit Provider Family Medicine
DX: R10.9 Unspecified abdominal pain (principal)
CPT/HCPCS: 36415; 74019; 80053; 82150; 83690; 85025; 85652; 87086; 87088